=== PATIENT | female | born 1995 | race Caucasian/White ===

== ENCOUNTER 2018-06-21 17:16 | Emergency (ER) | payer BC, OTHER ==
[2018-06-21] MEDS ORDERED: MAG HYDROX/AL HYDROX/SIMETH 30 ML UDCUP PO ONE (17:54)
[2018-06-21] MEDS ORDERED: LIDOCAINE 2% VISCOUS 15 ML UDCUP PO ONE (17:54)
[2018-06-21] MEDS ORDERED: HYOSCYAMINE SULFATE 0.125 MG TAB PO ONE (17:54)
--- NOTE | 2018-06-21 18:50 | EDPHY ---
H & P Time Seen by Provider: 06/21/18 18:23 HPI/ROS: Adult Chief complaint. Acid reflux HPI. Patient is a 23-year-old female presents emergency department with burning and pressure sensation behind her sternum and epigastric pain. She has a long history of GERD without evaluation or treatment. This morning she was well and then drank a lot take which is a known trigger for her. She then continued to drink a lot a and symptoms developed. When her reflux is bad she sometimes feels short of breath and also feels like she can have palpitations. No fever. She did vomit once today. No blood. ROS 10 systems were reviewed and negative with the exception of the elements mentioned in the history of present illness Past Medical/Surgical History: GERD Social History: Single, nonsmoker, no alcohol Smoking Status: Never smoked Physical Exam: General Appearance: Alert well-developed female moderate distress vital signs are stable Eyes: Pupils equal and round no pallor or injection. ENT, Mouth: Mucous membranes are moist. Respiratory: There are no retractions, lungs are clear to auscultation. Cardiovascular: Regular rate and rhythm. Gastrointestinal: Abdomen is soft with tenderness in the epigastrium. She also shows me that the discomfort goes up behind her sternum to the back of her throat Neurological: Awake and alert, sensory and motor exams grossly normal. Skin: Warm and dry, no rashes. Musculoskeletal: Neck is supple nontender. Extremities symmetrical, full range of motion. Psychiatric: Patient is oriented X 3, there is no agitation. Constitutional: Initial Vital Signs Temperature (C) 37.0 C 06/21/18 17:34 Heart Rate 76 06/21/18 17:34 Respiratory Rate 20 06/21/18 17:34 Blood Pressure 144/85 H 06/21/18 17:34 O2 Sat (%) 97 06/21/18 17:34 O2 Delivery Mode Room Air Allergies/Adverse Reactions: No Known Allergies Allergy (Unverified 06/21/18 17:34) Home Medications: Medication Instructions Recorded Esomeprazole Mag Trihydrate 40 mg PO DAILY #10 06/21/18 [Nexium] Medical Decision Making Procedures: GI cocktail with resolution of symptoms in approximately 5 min ED Course/Re-evaluation: The patient and I discussed treatment plan including criteria for return importance of follow-up and further evaluation. She expresses understanding and agreement Differential Diagnosis: I considered GERD, gastritis, peptic ulcer disease - Data Points Medications Given: Discontinued Medications Al Hydroxide/Mg Hydroxide (Maalox Susp) 30 ml PO ONCE ONE Stop: 06/21/18 17:55 Last Admin: 06/21/18 18:00 Dose: 30 ml Hyoscyamine Sulfate (Levsin, Hyomax-Sl) 0.25 mg PO ONCE ONE Stop: 06/21/18 17:55 Last Admin: 06/21/18 17:59 Dose: 0.25 mg Lidocaine (Lidocaine 2% Viscous) 15 ml PO ONCE ONE Stop: 06/21/18 17:55 Last Admin: 06/21/18 18:00 Dose: 15 ml Departure - Departure Disposition: Home, Routine, Self-Care Clinical Impression: GERD (gastroesophageal reflux disease) Qualifiers: Esophagitis presence: esophagitis presence not specified Qualified Code(s): K21.9 - Gastro-esophageal reflux disease without esophagitis Condition: Good Instructions: Diet for Stomach Ulcers and Gastritis (ED), Gastroesophageal Reflux Disease (ED) Additional Instructions: Caution with caffeine, alcohol, Advil, aspirin as these can irritate her stomach Mylanta 2 tbsp every 6 hr and especially at bedtime the next 3 days. Nexium as acid inhibitor to help you're stomach heal Return for worsening symptoms. I will give you the name of local manager installation for further evaluation May also use Prilosec [id number] as directed Referrals: Bulmaro Nava MD [Medical Doctor] - 2-3 days, call for appt. Prescriptions: Esomeprazole Mag Trihydrate [Nexium] 40 mg PO DAILY #10 cap.
[2018-06-21 19:08] VITALS: BP 117/85
== END 2018-06-21 19:07 | disposition home or self-care (01) ==
DX: K21.9 Gastro-esophageal reflux disease without esophagitis (principal)